=== PATIENT | female | born 2000 ===

== ENCOUNTER 2019-03-18 16:33 | Observation (INO) ==
[2019-03-18 17:25] LABS: Bilirubin,Urine Negative (Negative); Blood,Urine Negative (Negative); Clarity,Urine Cloudy (Clear); Color,Urine Yellow (Yellow); Glucose,Urine (UA) >=1000 mg/dL (Normal); Ketones,Urine Negative (Negative); Leukocyte Esterase,Urine Moderate (Negative); Nitrite,Urine Negative (Negative); Protein,Urine Negative (Neg-Trace); Specific Gravity,Urine 1.021 (1.010-1.025); Urobilinogen,Urine Normal (Normal)
[2019-03-18 17:27] LABS: Amphetamine Screen,Urine Negative ng/mL (Cutoff=1000); Bacteria,Urine Few per hpf (None-Few); Barbiturate Screen,Urine Negative ng/mL (Cutoff=200); Benzodiazepines Screen,Urine Negative ng/mL (Cutoff=200); Cannabinoid Screen,Urine Negative ng/mL (Cutoff = 50); Cocaine Screen,Urine Negative ng/mL (Cutoff= 300); Hyaline Casts,Urine None Seen per lpf (None-Few); Opiate Screen,Urine Negative ng/mL (Cutoff=300); Phencyclidine Screen,Urine Negative ng/mL (Cutoff=25); RBC,Urine 0-3 per hpf (0-3); Squamous Epithelial Cell,Urine Many per lpf (None-Few)
[2019-03-18 19:46] LABS: Candida DNA DETECTED (Not Detect); Gardnerella DNA DETECTED (Not Detect); Trichomonas DNA Not Detected (Not Detect)
== END 2019-03-18 18:40 | disposition home or self-care (01) ==
LOC: 1NENULAB
PROVIDERS: ADMIT Registered Nurse; ATTEND Registered Nurse